=== PATIENT | female | born 1945 | race Caucasian/White ===

== ENCOUNTER 2020-03-27 11:14 | Outpatient (CLI) | payer OTHER, SELFPAY ==
--- NOTE | ~2020-03-27 | XR_ITS ---
EXAMINATION: XR lg joint inject/asp w image DATE: 03/27/2020 12:19 INDICATION: Right hip arthritis. TECHNIQUE: A time-out was performed to verify the patient's name, date of , and procedure to b e performed. The procedure including the risks, benefits, and alternatives was discussed with the pat ient. Risks discussed included bleeding and infection. The patient understood the risks and agreed to proceed. The skin overlying the right hip joint was prepped and draped in usual sterile fashion. A nesthetic was administered with 1% lidocaine subcutaneously. A 22 G needle was advanced under fluoro scopic guidance into the joint. Injection of 1 mL of Omnipaque 240 confirmed intra-articular positio n of the needle. Subsequently, injectate consisting of 2 mL 0.5% bupivacaine and 1 mL 80 mg/mL Depo- Medrol was instilled. The needle was removed and the entry site was cleaned and dressed. There were no immediate complications. Fluoroscopy exposure time was 0.1 minutes. The total number of images wa s 2. FINDINGS: Real-time fluoroscopy demonstrates the needle in the right hip joint. Patient's pain prior to procedure:5/10. Patient's pain following the procedure: 0/10. IMPRESSION: 1. Fluoroscopy guided right hip joint injection of local anesthetic and steroid with decrease in the patient's presenting pain. Reviewed, dictated and finalized at location A. [facility]
== END 2020-03-27 11:15 | disposition home or self-care (01) ==
PROVIDERS: PCP Internal Medicine; Visit Provider Orthopaedic Surgery
DX: M16.11 Unilateral primary osteoarthritis, right hip (principal)
CPT/HCPCS: 20610; 77002; J1040; Q9966

== ENCOUNTER 2021-08-15 12:00 | Outpatient (CLI) | payer OTHER, SELFPAY ==
--- NOTE | 2021-08-15 12:59 | ECG_ITS ---
Measurements Intervals [place] Rate: 80 P: 60 CO: 165 QRS: 31 QRSD: 83 T: 44 QT: 374 QTc: 434 Interpretive Statements SINUS RHYTHM MINOR T-WAVE ABNORMALITY OTHERWISE NORMAL ECG NO PREVIOUS ECG AVAILABLE FOR COMPARISON Electronically Signed On 08-15-2021 15:29:17 CDT by Yvon Mendez M.D.
[2021-08-15 13:30] LABS: Basophils Absolute Auto 0.1 K/mm3 (0.0-0.1); Eosinophils Absolute Auto 0.4 K/mm3 (0-0.3); Hematocrit 38.6 % (37.0-47.0); Hemoglobin 12.5 g/dL (12.0-15.0); Immature Granulocyte Absolute 0.03 K/mm3 (0.00-0.031); Immature Granulocyte Percent A 0.4 % (0-0.5); Lymphocytes Absolute Auto 2.36 K/mm3 (0.9-3.2); Mean Corpuscular HGB Conc 32.4 g/dl (32-36); Mean Corpuscular Hemoglobin 27.4 pg (26-34); Mean Corpuscular Volume 84.6 fl (80-100); Mean Platelet Volume 9.7 fl (7.4-10.4); Monocytes Absolute Auto 0.9 K/mm3 (0.1-0.6); Monocytes Percent Auto 11.2 % (2.6-8.5); Neutrophils Absolute Auto 4.4 K/mm3 (1.3-6.7); Neutrophils Percent Auto 53.4 % (45.5-73.1); Platelet Count Result 418 k/mm3 (150-375); Red Blood Count 4.56 M/mm3 (4.2-5.4); Red Cell Distribution Width 13.3 % (11.5-14.5); White Blood Count 8.2 K/mm3 (4.5-10.0)
[2021-08-15 13:33] LABS: Add Urine Microscopic? YES; Appearance Urine Clear (Clear); Bilirubin Urine Negative (Negative); Blood Urine Negative (Negative); Color Urine Yellow (Yellow); Glucose Urine UA Negative (Negative); Ketones Urine Negative (Negative); Leukocyte Esterase Ur Trace LEU/UL (Negative); Nitrate Urine Negative (Negative); Protein Urine Negative (Negative); RBC Urine 0-2 /hpf (0-2); Specific Grav Ur 1.012 (1.001-1.035); Urobilinogen Urine Negative mg/dL (<2.0); WBC Urine 0-3 /hpf
[2021-08-15 13:39] LABS: Prothrombin Time 12.7 Seconds (11.1-14.7)
[2021-08-15 13:40] LABS: Partial Thromboplastin Time 27.2 SECONDS (22.3-36.8)
[2021-08-15 13:41] LABS: Albumin Level 4.7 g/dL (3.5-5.1); Anion Gap 7 mmol/L (8-16); Blood Urea Nitrogen 14 mg/dL (7-17); Calcium 9.6 mg/dL (8.4-10.2); Carbon Dioxide 32 mmol/L (22-30); Chloride 99 mmol/L (98-107); Estimated Glomerular Filt Rate > 60; Glucose 87 mg/dL (65-110); Potassium 4.1 mmol/L (3.4-5.0); Sodium 138 mmol/L (137-145)
[2021-08-15 13:45] LABS: Urine Cotinine NEGATIVE
[2021-08-15 13:47] LABS: Hemoglobin A1C 5.9 % (<5.7)
== END 2021-08-15 12:01 | disposition home or self-care (01) ==
LOC: ANHSURGERY 12:04
PROVIDERS: PCP Internal Medicine; Visit Provider Orthopaedic Surgery
DX: Z01.812 Encounter for preprocedural laboratory examination (principal); M16.11 Unilateral primary osteoarthritis, right hip
CPT/HCPCS: 80048; 80307; 81001; 82040; 83036; 85025; 85610; 85730; 86850; 86900; 86901; 87081; 93005

== ENCOUNTER 2021-08-27 15:09 | Observation (INO) | payer OTHER, SELFPAY ==
[2021-08-15 12:12] VITALS: BMI 28.2
--- NOTE | 2021-08-15 12:37 | PC.NURSE ---
Report to the Outpatient Waiting Room, entrance under the green pavilion located off [facility], at time _0600 on date . OR Time: . - You and your visitor will be asked a series of questions to screen for COVID 19 for your protection. - A mask is required within the hospital. Preoperative COVID Testing Requirements: No COVID Test needed if: (proof is required; if not received patient will have Rapid Test prior to entry) - Patient has received COVID Vaccine at least 14 days prior to procedure date or - Patient has positive COVID test result within last 90 days of surgery date. COVID Test needed if above criteria is not met If not COVID vaccinated a COVID test must be conducted within 72 hours of surgery and patient is asked to isolate self from time of testing until procedure. You will go to the [facility] for your COVID testing. The [employer] [facility] is located at the corner of [address] [facility]. You will only be called if COVID results are positive and your surgeon may reschedule your elective surgery date. Patients may have clear liquids (water, carbonated beverages, clear teas, apple juice) until 3 hours prior to surgery with a maximum of 20 ounces. - No food from midnight until time of surgery - Infants may have breast milk until 4 hours before surgery, infant formula 6 hours prior to surgery. - Children will be allowed to drink immediately following surgery. If applicable, please bring a bottle or sippy cup to assist with drinking. Juice, water, soda, and popsicles are readily available. For infants on formula, please bring formula the day of surgery. Pacifiers are allowed. Take the following medications with a SIP of water the morning of surgery: _ALPRAZOLAM,BUPROPION,_VENLAFAXINE Medications to discontinue per physician __TORDAOL PER DR TIDWELL, ALL VITAMINS AND SUPPLEMENTS 3 DAYS PRE OP Date to take last dose__08/22/21 Please no make-up, nail tongan, hairspray, perfume, deodorant, or body powder the day of surgery. No jewelry (including any body piercings) or valuables the day of surgery, leave them at home. Please take a shower or bath the night before, or the morning of, surgery with an antibacterial soap. Wear comfortable, loose fitting clothing. Children are encouraged to wear pajamas. - Jewelry must be removed prior to entering the operating room. Rings and piercings that are not removed may be cut off. - The hospital will not accept responsibility for valuables. - Please leave all valuables, including medications, at home the day of surgery. If you are going home after surgery, a licensed delivery motorcycle driver must drive you home. - NO public transportation without another adult. - We recommend that an adult stay with you for 24 hours following discharge. - We also recommend that you do not drive, make important decision, drink alcoholic beverages, or take any drugs that were not prescribed by your health care provider for at least 24 hours after your discharge time. For Pediatric surgeries, we recommend two adults accompany the child home (only one inside the building at this time). One visitor will be allowed to accompany the patient into the hospital. Patients visitor will be instructed to remain with patient at all times or leave the building. We will allow the visitor to come back to the postoperative area when patient is ready. Follow any additional instructions given to you from your surgeon. VERBAL AND WRITTEN instructions given to __PATIENT and asked if any additional questions and then verbalized understanding. Patient advised to call surgeon office or pre surgery nurse liaison [phone] if any additional questions.
[2021-08-15 12:57] VITALS: BP 152/94; PULSE 88; RESP 18; TEMP 36.9; O2SAT 98
[2021-08-26] VITALS (16 sets, daily range): BP systolic 119–156; BP diastolic 55–82; PULSE 82–105; RESP 10–20; TEMP 35.8–36.6; O2SAT 90–100; BMI 28.2
[2021-08-26] MEDS: ACETAMINOPHEN 500 MG TABLET 1000 MG PO (06:16)
[2021-08-26] MEDS: LACTATED RINGERS 1,000 ML 30 ML IV CONT ×2 (06:20→11:00)
[2021-08-26] MEDS: TRANEXAMIC ACID 1,000MG/ISO100 1,000 MG/100 ML BAG 200 MG IVPB (06:58)
--- NOTE | 2021-08-26 07:01 | WPDANESEPPF ---
Anes - Initial Pre Proc Eval Procedure: Operation Date: 08/26/21 07:30 Proposed Procedures p Right Total Hip Arthroplasty - Home Contreras MD Date/Time: 08/26/21 07:01 Surgeon: Home Contreras MD Pre Op Diagnosis: right hip DJD Patient Data Age: 76 Gender: F Height: 1.59 m Weight: 68 kg Last Vital Signs Temp 36.6 C 08/26/21 06:05 Pulse 103 H 08/26/21 06:05 Resp 16 08/26/21 06:05 BP 129/76 08/26/21 06:05 Pulse Ox 96 08/26/21 06:05 Allergies Allergy/AdvReac Type Severity Reaction Status Date / Time No Known Allergies Allergy Verified 08/26/21 06:00 Home Medications Medication Instructions Recorded Confirmed Type alprazolam 0.5 mg tablet 0.5 mg PO BID 03/15/20 08/26/21 History bupropion HCl 150 mg 24 hr tablet, 150 mg PO QAM 03/15/20 08/26/21 History extended release cimetidine 800 mg tablet 800 mg PO BID 03/15/20 08/26/21 History omeprazole 40 mg capsule,delayed 40 mg PO DAILY 03/15/20 08/26/21 History release temazepam 15 mg capsule 30 mg PO HS 03/15/20 08/26/21 History venlafaxine 37.5 mg tablet 37.5 mg PO QAM 03/15/20 08/26/21 History atorvastatin 20 mg PO DAILY 08/15/21 08/26/21 History biotin 1 tablet PO DAILY 08/15/21 08/26/21 History cholecalciferol (vitamin D3) 50 mcg PO DAILY 08/15/21 08/26/21 History cyanocobalamin (vitamin B-12) 1,000 mcg PO DAILY 08/15/21 08/15/21 History fexofenadine [Faby Allergy] 180 mg PO DAILY 08/15/21 08/26/21 History hydrochlorothiazide 25 mg PO DAILY 08/15/21 08/26/21 History ipratropium bromide 2 spray INTRANASAL DAILY 08/15/21 08/26/21 History ketorolac 10 mg PO Q6H PRN 08/15/21 08/26/21 History sulfamethoxazole 800 1 tablet PO Q12H #20 tablet 08/15/21 Rx mg-trimethoprim 160 mg tablet Patient hx anesthesia problems: post op nausea/vomiting Family hx anesthesia problems: none Results Review: All pre-operative results and documents have been reviewed as part of the pre-operative evaluation. [facility] Past Medical History Medical History Anxiety Arthritis Depression GERD (gastroesophageal reflux disease) Hyperlipidemia Hypertension Right hip pain Family History Family History Other Family history of mental disorder Social History Social History Additional smoking assessment comments: DENIES ANY FORM OF TOBACCO USE Alcohol intake: current Substance use: never Living arrangements: with family Gender identity (if verbalized by the patient): Female Spiritual care concerns: No Anes - Eval Final PreProcedure Day of Procedure 08/26/21 07:01 Patient weight: overweight Heart: regular rate and rhythm Lungs: clear to auscultation Airway: Mallampati scale class II Neurological: alert and oriented Last oral intake: >/= 8 hours ASA classification: III Emergent: no Anesthetic plan: proceed Anesthesia type and monitoring: general ETT and standard monitoring Results Review: All pre-operative results and documents have been reviewed as part of the pre-operative evaluation. Informed Consent: The patient's anesthetic plan and its attendant risks and benefits were discussed with the patient/family/POA. Questions were solicited and answers provided to the satisfaction of the patient/family/POA.
--- NOTE | 2021-08-26 07:13 | WPDHPUPDATE1 ---
History and Physical Update Update Date/Time: 08/26/21 07:13 History and Physical has been reviewed, including an updated exam of the patient. There are NO changes in the patient's condition. Risks, benefits, and alternatives have been discussed and questions answered. Patient agrees to proceed with procedure.
[2021-08-26] MEDS: ceFAZolin 2 GM/D5W 50 ML 2 GM/50 ML BAG IVPB ×3 (07:26→23:16)
[2021-08-26] MEDS: TRANEXAMIC ACID 1,000 MG/10 ML AMPUL 1000 MG IV PUSH (10:12)
--- NOTE | 2021-08-26 10:57 | W.PM.PROC2 ---
Procedure Note - Detailed Date of Procedure 08/26/21 Pre-op Diagnosis right hip DJD Post-op Diagnosis Same Procedure Performed R MEDARDO Surgeon Home Contreras MD Anesthesia General Description of Procedure THE PATIENT WAS TAKEN TO THE OPERATING ROOM IN STABLE CONDITION AND WAS PLACED IN THE LATERAL DECUBITUS AND THE RIGHT LOWER EXTREMITY WAS PREPPED AND DRAPED IN THE STERILE FASHION. INCISION WAS MADE IN THE POSTERIOR LATERAL SIDE OF THE HIP, DOWN TO THE FASCIA LAYER. THE FASCIA WAS INCISED. THE HIP WAS EXPOSED. THE SHORT EXTERNAL ROTATORS WERE EXPOSED. THE SCIATIC NERVE WAS IDENTIFIED. THERE WAS A HIGH BIFURCATION OF THE NERVE. INCISION WAS MADE THROUGH THE SORT EXTERNAL ROTATORS AND THE CAPSULE OF THE HIP JOINT. THE HIP WAS DISLOCATED. AN OSTEOTOMY WAS MADE TO THE FEMORAL NECK ABOUT 1 CM PROXIMAL TO THE LESSER TROCHANTER. THE ACETABULUM WAS EXPOSED. THERE WAS SEVERE DJD SEEN. BEGINNING WITH A 44 REAMER THE ACETABULUM WAS REAMED TO 49 MM. A 49 MM TRIAL WAS PLACED IN 35 DEG OF ABDUCTION AND ANTEVERSION WAS IN ALIGNMENT WITH THE TRANS ACETABULAR LIGAMENT. THE FIT WAS EXCELLENT. THE TRIAL WAS REMOVED. A 50 MM BIOMET G7 COMPONENT WAS THEN TAPPED IN TO PLACE IN 35 DEG OF ABDUCTION AND ANTEVERSION IN ALIGNMENT WITH THE TRANSVERSE ACETABULAR LIGAMENT. THE FIT WAS EXCELLENT. ONE SCREW WAS PLACED WITH AN EXCELLENT BITE. THE ACETABULAR LINER WAS PLACED AND CHECKED FOR STABILITY. NEXT THE FEMUR WAS PREPARED WITH INITIAL CANAL FINDER THEN SEQUENTIAL REAMING AND BROACHING WITH A ECCO BIMETRIC SYSTEM, UNTIL A 12 BROACH FIT WELL IN 15 OF ANTEVERSION. A +0 STANDARD OFFSET NECK WITH 36 MM HEAD TRIAL WAS PLACED. THE SHUCK TEST WAS EXCELLENT AND THE STABILITY IN FLEXION AND ROTATION WAS EXCELLENT. LEG LENGTHS WERE GROSSLY EQUAL. TRIALS WERE REMOVED. A ECCO BIMETRIC 12 STEM WAS PLACED WITH A STANDARD OFFSET NECK THE FIT WAS EXCELLENT IN 15 DEG OF ANTEVERSION. A +0 CERAMIC 36 MM FEMORAL HEAD WAS PLACED. THE HIP WAS TRIALED AND THE STABILITY WAS EXCELLENT WERE THE LEG LENGTHS AND THE SHUCK TEST. THE WOUND WAS IRRIGATED WITH STERILE BETADINE AND WATER FOR 3 MIN. THEN WASHED AGAIN. THE CAPSULE AND THE EXTERNAL ROTATORS WERE APPROXIMATED WITH NUMBER 1 VICRYL. THE FASCIA WITH No 2 QUIL AND THE SUB CUTANEOUS LAYER WITH 2-0 ABSORBABLE SUTURE WITH A RUNNING 3-0 SUBCUTICULAR LAYER WELL. DERMABOND WAS PLACED AND STERILE DRESSING WAS APPLIED. PATIENT WAS PLACED BACK ON TO THE SUPINE POSITION AND WAS EXTUBATED Estimated Blood Loss 800 Complications No immediate complications Condition Stable Disposition PACU
[2021-08-26] MEDS: fentaNYL CITRATE INJ (*CRX) 100 MCG/2 ML VIAL 25 MCG IV PUSH ×3 (11:35→11:48)
--- NOTE | 2021-08-26 12:20 | ADMGEN ---
This patient, Melisa Blue, was admitted to Medical Room 245-. Patient/family oriented to hospital policies and general routines including ID bracelet, bed and alarms, visiting hours, pain management, procedures, bathroom and other care routines, personal items, smoking policy, room service/diet, and visiting hours. Information on how to activate the Rapid Response Team has been discussed. Patient/Family are encouraged to report perceived risks to care and to ask questions if they do not understand what they are told or what they should do.
[2021-08-26] MEDS: KETOROLAC 15 MG/ML VIAL (*BKC) IV PUSH ×3 (12:38→23:18)
[2021-08-26] MEDS: DEXTROSE 5%/0.45% SOD CHL 1,000 ML 80 ML IV CONT (12:38)
--- NOTE | 2021-08-26 14:29 | PCPTNOTE ---
Attempted physical therapy evaluation, per RN patient remains very drowsy from surgery and to check back later. Will follow.
[2021-08-26] MEDS: ONDANSETRON INJ 4 MG/2 ML VIAL IV PUSH (15:37)
[2021-08-26] MEDS: HYDROcodone/acetaminophen (*CRX) 7.5-325 MG TABLET 1 TAB PO ×2 (15:37→21:53)
[2021-08-26] MEDS: SENNA/DOCUSATE SODIUM TABLET 2 TAB PO (16:18)
[2021-08-26 21:04] LABS: Hematocrit 24.8 % (37.0-47.0); Hemoglobin 8.2 g/dL (12.0-15.0)
[2021-08-26] MEDS: ALPRAZolam (*CRX) 0.5 MG TABLET 1 MG PO (21:52)
[2021-08-26] MEDS: TEMAZEPAM (*CRX) 15 MG CAPSULE 30 MG PO (21:52)
[2021-08-26] MEDS: FAMOTIDINE 20 MG TABLET PO (21:53)
[2021-08-27] VITALS (7 sets, daily range): BP systolic 123–136; BP diastolic 57–71; PULSE 89–110; RESP 12–20; TEMP 36–36.9; O2SAT 95–100
--- NOTE | ~2021-08-27 | XR_ITS ---
EXAMINATION: XR hip RT 1V DATE: 08/26/2021 11:11 INDICATION: Total right hip arthroplasty. Postop. TECHNIQUE: A single view of right hip was obtained. COMPARISON: Pelvis and right hip radiographs 08/15/2021 FINDINGS: There is a total right hip arthroplasty in near-anatomic alignment. No fracture. There is g as in the soft tissues, consistent with recent surgery. IMPRESSION: 1. Total right hip arthroplasty in near-anatomic alignment. Reviewed, dictated and finalized at location B.
[2021-08-27] MEDS: DEXTROSE 5%/0.45% SOD CHL 1,000 ML 80 ML IV CONT (01:41)
[2021-08-27] MEDS: KETOROLAC 15 MG/ML VIAL (*BKC) IV PUSH ×2 (05:38→11:14)
[2021-08-27] MEDS: ceFAZolin 2 GM/D5W 50 ML 2 GM/50 ML BAG IVPB (05:38)
[2021-08-27 06:00] LABS: Basophils Percent Auto 0.1 % (0.2-1.2); Eosinophils Percent Auto 0.1 % (0-4.4); Hematocrit 22.4 % (37.0-47.0); Hemoglobin 7.3 g/dL (12.0-15.0); Immature Granulocyte Absolute 0.06 K/mm3 (0.00-0.031); Immature Granulocyte Percent A 0.4 % (0-0.5); Lymphocytes Absolute Auto 2.06 K/mm3 (0.9-3.2); Lymphocytes Percent Auto 14.1 % (18.3-44.2); Mean Corpuscular HGB Conc 32.6 g/dl (32-36); Mean Corpuscular Hemoglobin 27.4 pg (26-34); Mean Corpuscular Volume 84.2 fl (80-100); Mean Platelet Volume 10.4 fl (7.4-10.4); Monocytes Absolute Auto 1.8 K/mm3 (0.1-0.6); Monocytes Percent Auto 12.4 % (2.6-8.5); Neutrophils Absolute Auto 10.6 K/mm3 (1.3-6.7); Neutrophils Percent Auto 72.9 % (45.5-73.1); Platelet Count Result 321 k/mm3 (150-375); Red Blood Count 2.66 M/mm3 (4.2-5.4); Red Cell Distribution Width 13.5 % (11.5-14.5); White Blood Count 14.6 K/mm3 (4.5-10.0)
[2021-08-27 06:10] LABS: Anion Gap 3 mmol/L (8-16); Blood Urea Nitrogen 13 mg/dL (7-17); Calcium 7.8 mg/dL (8.4-10.2); Carbon Dioxide 29 mmol/L (22-30); Chloride 95 mmol/L (98-107); Estimated CRCL calculation 48 ml/min; Estimated Glomerular Filt Rate > 60; Glucose 125 mg/dL (65-110); Potassium 3.7 mmol/L (3.4-5.0); Sodium 127 mmol/L (137-145)
[2021-08-27] MEDS: polyethylene glycoL 3350 17 GM POWD.PACK PO (08:06)
[2021-08-27] MEDS: ASPIRIN 325 MG ENTERIC TABLET 650 MG PO (08:07)
[2021-08-27] MEDS: PANTOPRAZOLE 40 MG TABLET PO ×2 (08:07→16:15)
[2021-08-27] MEDS: ONDANSETRON INJ 4 MG/2 ML VIAL IV PUSH (08:07)
[2021-08-27] MEDS: SENNA/DOCUSATE SODIUM TABLET 2 TAB PO ×2 (08:07→16:15)
[2021-08-27] MEDS: ACETAMINOPHEN 325 MG TABLET 650 MG PO (08:07)
[2021-08-27] MEDS: CYANOCOBALAMIN 1,000 MCG TABLET 1000 MCG PO (08:08)
[2021-08-27] MEDS: ATORVASTATIN 20 MG TABLET PO (08:08)
[2021-08-27] MEDS: FAMOTIDINE 20 MG TABLET PO ×2 (08:08→21:12)
[2021-08-27] MEDS: CHOLECALCIFEROL 1,000 UNITS TABLET 2000 UNITS PO (08:08)
[2021-08-27] MEDS: ALPRAZolam (*CRX) 0.5 MG TABLET PO (08:08)
[2021-08-27] MEDS: hydroCHLOROthiazide 25 MG TABLET PO (08:08)
[2021-08-27] MEDS: VENLAFAXINE HCL 37.5 MG TABLET PO (08:08)
[2021-08-27] MEDS: buPROPion HCL XL (24 HR) 150 MG TABCR PO (08:08)
--- NOTE | 2021-08-27 11:01 | PCOTNOTE ---
Patient reports being very tired, feels like she just doesn't care. Patient not motivated to participate in OT at this time. Patient's present. Patient requested therapist attempt again later. Patient's RN reports patient to receive blood soon. Will return to see patient after blood transfusion complete.
[2021-08-27] MEDS: SODIUM CHLORIDE 0.9% IV 250 ML 30 ML IV CONT (11:04)
--- NOTE | 2021-08-27 11:57 | PCCCNOTE ---
On 08/27/21, the student, [Alicia Maradiaga ], provided care and completed [facility] documentation on this patient. I have reviewed the student's documentation and agree with the findings.
--- NOTE | 2021-08-27 12:34 | P.PNAN_ITS ---
Anes - Prog Note Post-Op Date/Time: 08/27/21 12:34 Cardiovascular status: normal Respiratory status: normal Airway patency: baseline Mental status: baseline Post-Op hydration status: normal Vital Signs: Last Vital Signs Temp 97.8 F 08/27/21 11:27 Pulse 89 08/27/21 11:27 Resp 12 08/27/21 11:27 BP 123/61 08/27/21 11:27 Pulse Ox 99 08/27/21 11:27 Pain Score (VAS): 05/05 I/O: Intake & Output 08/26/21 08/27/21 08/27/21 23:59 07:59 15:59 Intake Total 325 1730 175 Output Total 0 Balance 325 1730 175 Laboratory Tests 08/27/21 05:17 08/27/21 05:17 08/26/21 08/27/21 08/27/21 20:56 05:17 05:17 WBC 14.6 H RBC 2.66 L Hgb 8.2 L D 7.3 L Hct 24.8 L 22.4 L MCV 84.2 MCH 27.4 MCHC 32.6 RDW 13.5 Plt Count 321 MPV 10.4 Immature Gran % (Auto) 0.4 Neut % (Auto) 72.9 Lymph % (Auto) 14.1 L [place] % (Auto) 12.4 H Eos % (Auto) 0.1 Baso % (Auto) 0.1 L Lymph # (Auto) 2.06 [place] # (Auto) 1.8 H Eos # (Auto) 0.0 Baso # (Auto) 0.0 Abs Immat Gran (auto) 0.06 H Absolute Neuts (auto) 10.6 H Absolute Nucleated RBC 0.0 Nucleated RBC % 0.0 Sodium 127 L Potassium 3.7 Chloride 95 L Carbon Dioxide 29 Anion Gap 3 L BUN 13 Creatinine 0.80 Estim Creat Clear Calc 48 Estimated GFR > 60 Glucose 125 H Calcium 7.8 L Blood Type Antibody Screen Crossmatch 08/27/21 08:26 WBC RBC Hgb Hct MCV MCH MCHC RDW Plt Count MPV Immature Gran % (Auto) Neut % (Auto) Lymph % (Auto) [place] % (Auto) Eos % (Auto) Baso % (Auto) Lymph # (Auto) [place] # (Auto) Eos # (Auto) Baso # (Auto) Abs Immat Gran (auto) Absolute Neuts (auto) Absolute Nucleated RBC Nucleated RBC % Sodium Potassium Chloride Carbon Dioxide Anion Gap BUN Creatinine Estim Creat Clear Calc Estimated GFR Glucose Calcium Blood Type A Positive Antibody Screen Negative Crossmatch See Detail Post-procedural complaints: none Patient Feedback: Patient satisfied with anesthetic care.
--- NOTE | 2021-08-27 13:41 | PCOTNOTE ---
Patient not seen this date due to patient receiving blood transfusion. Will continue OT plan of care tomorrow.
--- NOTE | 2021-08-27 14:44 | PM.PNORT ---
Progress Note: A&P Additional Plan POD 1 DOING WELL. WILL OBSERVE HER HGB AND Na+ FOR NOW. SHE WILL CONTINUE PT. POSSIBLE DC TOMORROW. Subjective Subjective Date/Time Seen: 08/27/21 14:44 POD 1 DOING WELL. GETTING HER PRBCs AND FEELING MUCH BETTER. NO CP OR SOB. NO CALF PAIN Exam Extrem: Other: VSS AFEBRILE DRESSING DRY NV INTACT NEG HOMANS SIGN Objective Data Vital Signs Vital Signs: Vital Signs - 24 hr 08/26/21 18:12 08/26/21 20:00 08/26/21 20:58 Temperature 36.3 C L Pulse Rate 105 H 103 H 103 H Respiratory Rate 20 20 Blood Pressure 132/61 Pulse Oximetry 99 97 97 08/26/21 23:08 08/27/21 00:55 08/27/21 05:24 Temperature 36.1 C L 36.1 C L Pulse Rate 102 H 110 H Respiratory Rate 20 20 Blood Pressure 128/61 126/58 L Pulse Oximetry 97 95 96 08/27/21 09:55 08/27/21 11:12 08/27/21 11:27 Temperature 36.0 C L 36.2 C L 36.6 C Pulse Rate 97 92 89 Respiratory Rate 16 14 12 Blood Pressure 127/59 L 127/57 L 123/61 Pulse Oximetry 97 100 99 08/27/21 13:55 Temperature 36.7 C Pulse Rate 93 Respiratory Rate 16 Blood Pressure 129/59 L Pulse Oximetry 98 Intake/Output Intake/Output: Intake & Output 08/24/21 08/25/21 08/26/21 08/27/21 23:59 23:59 23:59 23:59 Intake Total 1825 2250 Output Total 0 Balance 1825 2250 Meds/Results Medications: Active Medications Generic Name Dose Route Start Last Admin Trade Name Freq PRN Reason Stop Dose Admin Acetaminophen 650 mg 08/26/21 12:10 08/27/21 08:07 Acetaminophen 325 Mg Tablet PO 650 mg Q6H PRN Administration Mild Pain (1-3) or Fever Hydrocodone Bitart/Acetaminophen 1 tab 08/26/21 12:10 08/26/21 21:53 Hydrocodone/Acetaminophen (*Crx) 7.5-325 Mg Tablet PO 1 tab Q3H PRN Administration Pain Rated 4-6 Alprazolam 0.5 mg 08/27/21 09:00 08/27/21 08:08 Alprazolam (*Crx) 0.5 Mg Tablet PO 0.5 mg DAILY ELTON Administration Alprazolam 1 mg 08/26/21 21:00 08/26/21 21:52 Alprazolam (*Crx) 0.5 Mg Tablet PO 1 mg HS ELTON Administration Aspirin 650 mg 08/27/21 09:00 08/27/21 08:07 Aspirin 325 Mg Enteric Tablet PO 650 mg DAILY ELTON Administration Atorvastatin Calcium 20 mg 08/27/21 09:00 08/27/21 08:08 Atorvastatin 20 Mg Tablet PO 20 mg DAILY ELTON Administration Bupropion HCl 150 mg 08/27/21 09:00 08/27/21 08:08 Bupropion Hcl Xl (24 Hr) 150 Mg Tabcr PO 150 mg QAM ELTON Administration Cyanocobalamin 1,000 mcg 08/27/21 09:00 08/27/21 08:08 Cyanocobalamin 1,000 Mcg Tablet PO 1,000 mcg DAILY ELTON Administration Diazepam 5 mg 08/26/21 12:10 Diazepam (*Crx) 5 Mg Tablet PO Q6H PRN Anxiety/Muscle Spasm Famotidine 20 mg 08/26/21 21:00 08/27/21 08:08 Famotidine 20 Mg Tablet PO 20 mg Q12HR ELTON Administration Hydrochlorothiazide 25 mg 08/27/21 09:00 08/27/21 08:08 Hydrochlorothiazide 25 Mg Tablet PO 25 mg DAILY ELTON Administration Hydroxyzine HCl 50 mg 08/26/21 12:10 Hydroxyzine Hcl 25 Mg Tablet PO Q4H PRN Itching Dextrose/Sodium Chloride 1,000 mls @ 80 mls/hr 08/26/21 12:10 08/27/21 11:17 Dextrose 5% Sodium Chloride 0.45% IV CONT 0 mls/hr .[id number] ELTON Infusion Sodium Chloride 250 mls @ 30 mls/hr 08/27/21 08:00 08/27/21 11:04 Normal Saline Iv IV CONT 08/27/21 16:19 30 mls/hr .[id number] STA Administration Morphine Sulfate 3 mg 08/26/21 12:10 Morphine Sulfate (*Crx) 4 Mg/Ml Inj IV PUSH Q3H PRN Pain Rated 7-10 Naloxone HCl 0.1 mg 08/26/21 12:10 Naloxone Hcl 0.4 Mg/Ml Vial IV PUSH Q2M PRN Opiate Reversal Ondansetron HCl 4 mg 08/26/21 12:10 08/27/21 08:07 Ondansetron Inj 4 Mg/2 Ml Vial IV PUSH 4 mg Q4H PRN Administration Nausea And Vomiting Pantoprazole Sodium 40 mg 08/27/21 09:00 08/27/21 08:07 Pantoprazole 40 Mg Tablet PO 40 mg BID ELTON Administration Polyethylene Glycol 17 gm 08/27/21 09:00 08/27/21 08:06 Polyethylene Glycol 33
[2021-08-27 15:57] LABS: Hematocrit 26.4 % (37.0-47.0); Hemoglobin 8.7 g/dL (12.0-15.0)
[2021-08-27] MEDS: HYDROcodone/acetaminophen (*CRX) 7.5-325 MG TABLET 1 TAB PO (17:43)
[2021-08-27] MEDS: ALPRAZolam (*CRX) 0.5 MG TABLET 1 MG PO (21:13)
[2021-08-27] MEDS: TEMAZEPAM (*CRX) 15 MG CAPSULE 30 MG PO (21:13)
[2021-08-28 02:00] VITALS: BP 133/63; PULSE 110; RESP 18; TEMP 36.7; O2SAT 95
[2021-08-28 06:00] VITALS: BP 128/58; PULSE 113; RESP 18; TEMP 37.1; O2SAT 97
[2021-08-28] MEDS: HYDROcodone/acetaminophen (*CRX) 7.5-325 MG TABLET 1 TAB PO ×2 (06:46→21:25)
[2021-08-28] MEDS: PANTOPRAZOLE 40 MG TABLET PO ×2 (08:12→17:35)
[2021-08-28] MEDS: ATORVASTATIN 20 MG TABLET PO (08:12)
[2021-08-28] MEDS: buPROPion HCL XL (24 HR) 150 MG TABCR PO (08:12)
[2021-08-28] MEDS: FAMOTIDINE 20 MG TABLET PO ×2 (08:12→21:24)
[2021-08-28] MEDS: CYANOCOBALAMIN 1,000 MCG TABLET 1000 MCG PO (08:12)
[2021-08-28] MEDS: ALPRAZolam (*CRX) 0.5 MG TABLET PO (08:12)
[2021-08-28] MEDS: hydroCHLOROthiazide 25 MG TABLET PO (08:12)
[2021-08-28] MEDS: VENLAFAXINE HCL 37.5 MG TABLET PO (08:13)
[2021-08-28] MEDS: CHOLECALCIFEROL 1,000 UNITS TABLET 2000 UNITS PO (08:13)
[2021-08-28] MEDS: SENNA/DOCUSATE SODIUM TABLET 2 TAB PO ×2 (08:13→17:35)
[2021-08-28] MEDS: polyethylene glycoL 3350 17 GM POWD.PACK PO (08:17)
--- NOTE | 2021-08-28 09:13 | PM.PNORT ---
Progress Note: A&P Assessment and Plan (1) S/P total hip arthroplasty: Qualifiers: Laterality: right Qualified Code(s): Z96.641 - Presence of right artificial hip joint Code(s): Z96.649 - Presence of unspecified artificial hip joint Status: Acute Assessment and Plan: POD #2 : R MEDARDO Continue PT/OT. WBAT. Walker. HIGH FALL RISK. Continue pain control. Ice hip. Protect skin. DVT prophylaxis with Aspirin. SCDs. Incentive Spirometry Use reviewed. Monitor Dressing. Change prior to discharge. Bowel Regimen. Dispo: Home pending progress with PT/OT and stable HgB/NA (2) Hyponatremia: Code(s): E87.1 - Hypo-osmolality and hyponatremia Status: Acute Assessment and Plan: NA 127 yesterday. BMP ordered. Will follow. (3) Postoperative anemia: Code(s): D64.9 - Anemia, unspecified Status: Acute Assessment and Plan: HgB 8.7 yesterday s/p PRBCs. HgB 8.7 after transfusion yesterday. CBC ordered for today. If stable, probable discharge. Time Spent With Patient Time with patient: less than 15 minutes Subjective Subjective Date/Time Seen: 08/28/21 09:13 Post Op day: 2 Interval history: POD #2: Right MEDARDO Patient doing well, feeling better . Working well with PT/OT. No new concerns. Hopeful for discharge home today. Review of Systems Review of Systems: All systems reviewed & are unremarkable except as noted in HPI and below Constitutional: Constitutional: Denies chills, Denies fever(s), Denies headache(s), Denies lethargy and Reports weakness ENT: Denies headache(s) Cardiovascular: Cardiovascular: Denies chest pain, Denies diaphoresis, Denies lightheadedness, Denies palpitations, Denies dyspnea and Denies dyspnea on exertion Respiratory: Respiratory: Denies cough, Denies dyspnea and Denies dyspnea on exertion Gastrointestinal: Gastrointestinal: Denies constipation, Denies diarrhea, Denies nausea and Denies vomiting Genitourinary: Genitourinary: Reports urinary frequency, Denies dysuria and Denies urinary hesitancy Musculoskeletal: Musculoskeletal: Reports joint swelling (Right Hip ) and Reports limited range of motion (Right Hip due to recent surgery ) Neurologic: Denies headache(s) and Reports weakness Endocrine: Endocrine: Denies palpitations Exam Const: General: comfortable and no acute distress Resp: Effort & Inspection: normal respiratory effort Cardio: Rate: regular rate Rhythm: regular rhythm GI: Inspection: non-distended Skin: General skin exam: normal color Other: Incision right hip c/d/i. Surrounding tissue without redness/warmth. Mild swelling consistent with recent surgery. No drainage. Neuro: Cognition (Neuro): normal cognition Speech: normal speech Other: Strength RLE decreased due to recent surgery. +ankle dorsiflexion/plantarflexion. NV intact. Moves toes. Sensaiton intact to light touch. Extrem: Right lower extremity: normal to inspection, normal capillary refill and hip/thigh Details: tenderness Location: of the hip (Thigh soft ) Location: laterally and anteriorly, swelling Location: at the hip, abnormal ROM (limited consistent with recent surgery ) and other (Incision c/d/i. ); no deformity and no unusual warmth Objective Data Vital Signs Vital Signs: Vital Signs - 24 hr 08/27/21 09:55 08/27/21 11:12 08/27/21 11:27 Temperature 36.0 C L 36.2 C L 36.6 C Pulse Rate 97 92 89 Respiratory Rate 16 14 12 Blood Pressure 127/59 L 127/57 L 123/61 Pulse Oximetry 97 100 99 08/27/21 13:55 08/27/21 22:00 08/28/21 02:00 Temperature 36.7 C 36.9 C 36.7 C Pulse Rate 93 102 H 110 H Respiratory Rate 16 18 18 Blood Pressure 129/59 L 136/71 133/63 Pulse Oximetry 98 96 95 08/28/21 06:00 Temperature 37.1 C Pulse Rate 113 H Respiratory Rate 18 Blood Pressure 128/58 L Pulse Oximetry 97 Intake/Output Intake/Output: Intake & Output 08/25/21 08/26/21 08/27/21 08/28/21 23:59 23:59 23:59 23:59 Intake Total 1825 3
[2021-08-28 09:40] LABS: Basophils Percent Auto 0.1 % (0.2-1.2); Eosinophils Percent Auto 0.3 % (0-4.4); Hematocrit 27.2 % (37.0-47.0); Immature Granulocyte Absolute 0.13 K/mm3 (0.00-0.031); Lymphocytes Absolute Auto 2.29 K/mm3 (0.9-3.2); Lymphocytes Percent Auto 16.8 % (18.3-44.2); Mean Corpuscular HGB Conc 33.1 g/dl (32-36); Mean Corpuscular Volume 84.7 fl (80-100); Mean Platelet Volume 9.9 fl (7.4-10.4); Monocytes Absolute Auto 1.8 K/mm3 (0.1-0.6); Neutrophils Absolute Auto 9.4 K/mm3 (1.3-6.7); Neutrophils Percent Auto 68.8 % (45.5-73.1); Platelet Count Result 336 k/mm3 (150-375); Red Blood Count 3.21 M/mm3 (4.2-5.4); Red Cell Distribution Width 13.4 % (11.5-14.5); White Blood Count 13.7 K/mm3 (4.5-10.0)
[2021-08-28] MEDS: ASPIRIN 325 MG ENTERIC TABLET 650 MG PO (09:47)
[2021-08-28 09:50] LABS: Anion Gap 5 mmol/L (8-16); Blood Urea Nitrogen 11 mg/dL (7-17); Calcium 8.5 mg/dL (8.4-10.2); Carbon Dioxide 28 mmol/L (22-30); Chloride 92 mmol/L (98-107); Estimated CRCL calculation 48 ml/min; Estimated Glomerular Filt Rate > 60; Glucose 135 mg/dL (65-110); Potassium 3.9 mmol/L (3.4-5.0); Sodium 125 mmol/L (137-145)
[2021-08-28 10:00] VITALS: BP 128/58; PULSE 104; RESP 18; TEMP 36.6; O2SAT 96
--- NOTE | 2021-08-28 13:00 | WPDCN ---
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 At this time we will hold her hydrochlorothiazide. She does not need IV fluids and in fact I think I will restrict her fluid intake to 1500 cc. With her increasing urine output in the last 12 to 18 hours, I think her body is probably resetting and I expect her sodium will start to creep back up. For completeness sake, will check TSH, urine and serum osmolalities, FENa and FEUrea. (2) Postoperative anemia due to acute blood loss: Code(s): D62 - Acute posthemorrhagic anemia Status: Acute Assessment and Plan: Status post blood transfusion postop day 1. Repeat hemoglobin and hematocrit in a.m.. (3) Hypertension: Code(s): I10 - Essential (primary) hypertension Status: Inactive Assessment and Plan: Blood pressures were reviewed and they are stable. (4) Depression with anxiety: Code(s): F41.8 - Other specified anxiety disorders Status: Acute Assessment and Plan: Continue alprazolam, bupropion, and venlafaxine. If sodium continues to drop, would consider holding these medications. (5) Gastroesophageal reflux disease: Code(s): K21.9 - Gastro-esophageal reflux disease without esophagitis Status: Inactive Assessment and Plan: No acute issues. Continue omeprazole. Additional Plan Thank you for allowing us to participate in this patient's care. Please do not hesitate to contact us with any questions. Supervising physician for this medical consultation is Dr. Emerson Parker. HPI Data of Consult Date/Time: 08/28/21 13:00 Requesting Physician: Home Contreras MD Reason for consultation: Hyponatremia. Primary Care Provider: Hilary BalMD Consult Narrative Narrative: This is a pleasant year female postoperative day 2 status post right total hip arthroplasty per Dr. Contreras for degenerative joint disease. Her medical history is also significant for hypertension, hyperlipidemia, anxiety, depression, and GERD. Her surgery was performed under general anesthesia with no immediate complications documented however she did have 800 mL blood loss for which she was given 1 unit of packed red blood cells yesterday. She has been working with PT however she has just not been feeling well the past couple of days with poor appetite and lightheadedness/dizziness upon standing. She also reports having quite a bit of pain in the hip when up and about to the bathroom. Postoperatively she has had moderate hyponatremia with a sodium of 125 this morning and hospitalist service was consulted in this setting.While she has not been eating much she reports to me that she has been drinking 4 to 5, 500 mL pitchers of water the past 2 days. She received 1 L of D5 half normal saline after her surgery and it looks like she got 1 L of LR with her surgery. Aside from a unit of blood, it does not look like she has gotten any other fluids aside from 1 unit of packed red blood cells. She is on several medications that could cause hyponatremia including bupropion, hydrochlorothiazide, and venlafaxine and it looks like she has been getting them during this stay. At the time my evaluation she does not have any complaints but she does mention that she has been urinating a lot over the past 12 to 18 hours, and in fact she even got up in the melena night urinate which is unusual for her. She denies headache, vomiting, confusion, muscle cramps, and weakness. Review of Systems Review of Systems: Twelve systems were reviewed and are negative except for
[2021-08-28 15:46] LABS: Thyroid Stimulating Hormone Reflex 0.471 uIU/mL (0.465-4.68)
[2021-08-28 16:39] LABS: Anion Gap 6 mmol/L (8-16); Blood Urea Nitrogen 10 mg/dL (7-17); Calcium 8.3 mg/dL (8.4-10.2); Carbon Dioxide 28 mmol/L (22-30); Chloride 94 mmol/L (98-107); Estimated CRCL calculation 55 ml/min; Estimated Glomerular Filt Rate > 60; Glucose 128 mg/dL (65-110); Potassium 3.7 mmol/L (3.4-5.0); Sodium 128 mmol/L (137-145)
[2021-08-28 18:00] VITALS: BP 126/58; PULSE 110; RESP 18; TEMP 36.9; O2SAT 97
[2021-08-28 19:44] LABS: Urea Random Urine 185 MG/DL
[2021-08-28 19:45] LABS: Sodium Urine Random 21 meq/L
[2021-08-28 20:07] VITALS: O2SAT 98
[2021-08-28 20:53] VITALS: BP 135/70; PULSE 114; RESP 18; TEMP 36.3; O2SAT 98
[2021-08-28] MEDS: ALPRAZolam (*CRX) 0.5 MG TABLET 1 MG PO (21:24)
[2021-08-29] VITALS (7 sets, daily range): BP systolic 120–133; BP diastolic 56–66; PULSE 88–108; RESP 18; TEMP 36–37.1; O2SAT 97–98
[2021-08-29 05:44] LABS: Hematocrit 25.3 % (37.0-47.0); Hemoglobin 8.2 g/dL (12.0-15.0)
[2021-08-29 05:55] LABS: Anion Gap 4 mmol/L (8-16); Blood Urea Nitrogen 9 mg/dL (7-17); Calcium 8.1 mg/dL (8.4-10.2); Carbon Dioxide 31 mmol/L (22-30); Chloride 96 mmol/L (98-107); Estimated CRCL calculation 55 ml/min; Estimated Glomerular Filt Rate > 60; Glucose 105 mg/dL (65-110); Potassium 3.2 mmol/L (3.4-5.0); Sodium 131 mmol/L (137-145)
[2021-08-29] MEDS: HYDROcodone/acetaminophen (*CRX) 7.5-325 MG TABLET 1 TAB PO (06:05)
[2021-08-29] MEDS: polyethylene glycoL 3350 17 GM POWD.PACK PO (08:05)
[2021-08-29] MEDS: POTASSIUM CHLORIDE 20 MEQ TABLET 40 MEQ PO (08:05)
[2021-08-29] MEDS: CYANOCOBALAMIN 1,000 MCG TABLET 1000 MCG PO (08:06)
[2021-08-29] MEDS: ALPRAZolam (*CRX) 0.5 MG TABLET PO (08:06)
[2021-08-29] MEDS: CHOLECALCIFEROL 1,000 UNITS TABLET 2000 UNITS PO (08:06)
[2021-08-29] MEDS: VENLAFAXINE HCL 37.5 MG TABLET PO (08:06)
[2021-08-29] MEDS: SENNA/DOCUSATE SODIUM TABLET 2 TAB PO ×2 (08:06→16:16)
[2021-08-29] MEDS: buPROPion HCL XL (24 HR) 150 MG TABCR PO (08:06)
[2021-08-29] MEDS: FAMOTIDINE 20 MG TABLET PO ×2 (08:06→20:58)
[2021-08-29] MEDS: PANTOPRAZOLE 40 MG TABLET PO ×2 (08:06→16:17)
[2021-08-29] MEDS: ATORVASTATIN 20 MG TABLET PO (08:06)
[2021-08-29] MEDS: ASPIRIN 325 MG ENTERIC TABLET 650 MG PO (08:06)
--- NOTE | 2021-08-29 10:02 | PM.PNORT ---
Progress Note: A&P Assessment and Plan (1) S/P total hip arthroplasty: Qualifiers: Laterality: right Qualified Code(s): Z96.641 - Presence of right artificial hip joint Code(s): Z96.649 - Presence of unspecified artificial hip joint Status: Acute Assessment and Plan: POD #3 : R MEDARDO Continue PT/OT. WBAT. Walker. HIGH FALL RISK. Continue pain control. Ice hip. Protect skin. DVT prophylaxis with Aspirin. SCDs. Incentive Spirometry Use reviewed. Monitor Dressing. Change prior to discharge. Bowel Regimen. Dispo: Home with Home Health pending medical clearance. (2) Postoperative anemia due to acute blood loss: Code(s): D62 - Acute posthemorrhagic anemia Status: Acute Assessment and Plan: HgB stable at 8.2. (3) Hyponatremia: Code(s): E87.1 - Hypo-osmolality and hyponatremia Status: Acute Assessment and Plan: NA 131 today. Improved from yesterday. Medicine service following. HCTZ held. Appreciate recommendations. (4) Hypokalemia: Code(s): E87.6 - Hypokalemia Status: Acute Assessment and Plan: Potassium 3.2 today. Repleted by medicine service. Time Spent With Patient Time with patient: less than 15 minutes Subjective Subjective Date/Time Seen: 08/29/21 10:02 Post Op day: 3 Interval history: POD #3: Right MEDARDO Patient doing well today. Overall, feeling better. No new concerns aside from discharge planning. Review of Systems Review of Systems: All systems reviewed & are unremarkable except as noted in HPI and below Constitutional: Constitutional: Denies chills, Denies fever(s), Denies headache(s), Denies lethargy and Reports weakness ENT: Denies headache(s) Cardiovascular: Cardiovascular: Denies chest pain, Denies diaphoresis, Denies lightheadedness, Denies palpitations, Denies dyspnea and Denies dyspnea on exertion Respiratory: Respiratory: Denies cough, Denies dyspnea and Denies dyspnea on exertion Gastrointestinal: Gastrointestinal: Denies constipation, Denies diarrhea, Denies nausea and Denies vomiting Genitourinary: Genitourinary: Reports urinary frequency, Denies dysuria and Denies urinary hesitancy Musculoskeletal: Musculoskeletal: Reports joint swelling (Right Hip ) and Reports limited range of motion (Right Hip due to recent surgery ) Neurologic: Denies headache(s) and Reports weakness Endocrine: Endocrine: Denies palpitations Exam Const: General: comfortable and no acute distress Resp: Effort & Inspection: normal respiratory effort Cardio: Rate: regular rate Rhythm: regular rhythm GI: Inspection: non-distended Skin: General skin exam: normal color Other: Incision right hip c/d/i. Surrounding tissue without redness/warmth. Mild swelling consistent with recent surgery. No drainage. Neuro: Cognition (Neuro): normal cognition Speech: normal speech Other: Strength RLE decreased due to recent surgery. +ankle dorsiflexion/plantarflexion. NV intact. Moves toes. Sensaiton intact to light touch. Extrem: Right lower extremity: normal to inspection, normal capillary refill and hip/thigh Details: tenderness Location: of the hip (Thigh soft ) Location: laterally and anteriorly, swelling Location: at the hip, abnormal ROM (limited consistent with recent surgery ) and other (Incision c/d/i. ); no deformity and no unusual warmth Objective Data Vital Signs Vital Signs: Vital Signs - 24 hr 08/28/21 18:00 08/28/21 20:07 08/28/21 20:53 Temperature 36.9 C 36.3 C L Pulse Rate 110 H 114 H Respiratory Rate 18 18 Blood Pressure 126/58 L 135/70 Pulse Oximetry 97 98 98 08/29/21 03:59 08/29/21 08:25 Temperature 36.0 C L 36.5 C Pulse Rate 100 100 Respiratory Rate 18 18 Blood Pressure 120/57 L 122/56 L Pulse Oximetry 97 98 Intake/Output Intake/Output: Intake & Output 08/26/21 08/27/21 08/28/21 08/29/21 23:59 23:59 23:59 23:59 Intake Total 1825 3100 1690 540 Output Total 0 100 700 Balance 182
--- NOTE | 2021-08-29 11:29 | PM.IMCN ---
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 Hold her hydrochlorothiazide until she follows up with her primary care physician within 1 week Continue fluid restriction Pending urine and serum osmolalities, FENa and FEUrea. (2) Postoperative anemia due to acute blood loss: Code(s): D62 - Acute posthemorrhagic anemia Status: Acute Assessment and Plan: Status post blood transfusion postop day 2. Repeat hemoglobin and hematocrit in a.m.. (3) Hypertension: Code(s): I10 - Essential (primary) hypertension Status: Inactive Assessment and Plan: Blood pressures were reviewed and they are stable. (4) Depression with anxiety: Code(s): F41.8 - Other specified anxiety disorders Status: Acute Assessment and Plan: Continue alprazolam, bupropion, and venlafaxine. If sodium continues to drop, would consider holding these medications. (5) Gastroesophageal reflux disease: Code(s): K21.9 - Gastro-esophageal reflux disease without esophagitis Status: Inactive Assessment and Plan: No acute issues. Continue omeprazole. Additional Plan Thank you for allowing us to participate in this patient's care. Please do not hesitate to contact us with any questions. Supervising physician for this medical consultation is Dr. Emerson Parker. HPI Data of Consult Consult date: 08/29/21 Requesting Physician: Home Contreras MD Primary Care Provider: Hilary BalMD Consult Narrative Narrative: Melisa Blue is a 76 year old female who is alert and oriented. She reports that she feels better today shower however has pain when she transitions from the bed to the commode. Patient's sodium is still [address] labs for tomorrow morning. Repleted potassium with 40 mEq. Continue to monitor sodium levels plan for discharge home. Discussed plan of care with ortho, they she reported she was able to be discharged from their standpoint. Review of Systems Review of Systems: All systems reviewed & are unremarkable except as noted in HPI and below PMFSH Past Medical History Medical History (Updated 08/29/21 @ 10:45 by SANDOVAL Gaspar) Anxiety Arthritis Depression Gastroesophageal reflux disease Hyperlipidemia Hypertension Surgical History Surgical History (Updated 08/29/21 @ 00:28 by Kandice Whitehead PA-C) History of hysterectomy History of total right hip arthroplasty (08/26/21) Family History Family History Other Family history of mental disorder Social History Social History (Updated 08/29/21 @ 00:28 by Kandice Whitehead PA-C) Social History: Surrogate decision maker: Pio Blue, spouse. Code status: Full code. Smoking status: Former smoker Tobacco type: cigarettes Additional smoking assessment comments: Smoked briefly in her 20s. Alcohol intake: never Substance use: never Living arrangements: with family Spiritual care concerns: No Meds Home Medications and Allergies Home Medications Medication Instructions Recorded Confirmed Type alprazolam 0.5 mg tablet 0.5 mg PO BID 03/15/20 08/26/21 History bupropion HCl 150 mg 24 hr tablet, 150 mg PO QAM 03/15/20 08/26/21 History extended release cimetidine 800 mg tablet 800 mg PO BID 03/15/20 08/26/21 History omeprazole 40 mg capsule,delayed 40 mg PO DAILY 03/15/20 08/26/21 History release temazepam 15 mg capsule 30 mg PO HS 03/15/20 08/26/21 History venlafaxine 3
[2021-08-29] MEDS: ALPRAZolam (*CRX) 0.5 MG TABLET 1 MG PO (20:58)
[2021-08-30] MEDS: HYDROcodone/acetaminophen (*CRX) 7.5-325 MG TABLET 1 TAB PO (00:09)
[2021-08-30 04:23] VITALS: BP 119/63; PULSE 95; RESP 20; TEMP 36.2; O2SAT 99
[2021-08-30 07:37] LABS: Hematocrit 25.5 % (37.0-47.0); Hemoglobin 8.3 g/dL (12.0-15.0); Mean Corpuscular HGB Conc 32.5 g/dl (32-36); Mean Corpuscular Hemoglobin 28.4 pg (26-34); Mean Corpuscular Volume 87.3 fl (80-100); Mean Platelet Volume 9.6 fl (7.4-10.4); Platelet Count Result 373 k/mm3 (150-375); Red Blood Count 2.92 M/mm3 (4.2-5.4); Red Cell Distribution Width 13.6 % (11.5-14.5); White Blood Count 7.8 K/mm3 (4.5-10.0)
[2021-08-30 07:47] LABS: Anion Gap 3 mmol/L (8-16); Blood Urea Nitrogen 11 mg/dL (7-17); Calcium 8.2 mg/dL (8.4-10.2); Carbon Dioxide 30 mmol/L (22-30); Chloride 99 mmol/L (98-107); Estimated CRCL calculation 63 ml/min; Estimated Glomerular Filt Rate > 60; Glucose 106 mg/dL (65-110); Potassium 3.9 mmol/L (3.4-5.0); Sodium 132 mmol/L (137-145)
[2021-08-30] MEDS: polyethylene glycoL 3350 17 GM POWD.PACK PO (09:37)
[2021-08-30] MEDS: ASPIRIN 325 MG ENTERIC TABLET 650 MG PO (09:37)
[2021-08-30] MEDS: SENNA/DOCUSATE SODIUM TABLET 2 TAB PO (09:38)
[2021-08-30] MEDS: FAMOTIDINE 20 MG TABLET PO (09:38)
[2021-08-30] MEDS: CHOLECALCIFEROL 1,000 UNITS TABLET 2000 UNITS PO (09:38)
[2021-08-30] MEDS: PANTOPRAZOLE 40 MG TABLET PO (09:38)
[2021-08-30] MEDS: ALPRAZolam (*CRX) 0.5 MG TABLET PO (09:38)
[2021-08-30] MEDS: ATORVASTATIN 20 MG TABLET PO (09:38)
[2021-08-30] MEDS: VENLAFAXINE HCL 37.5 MG TABLET PO (09:38)
[2021-08-30] MEDS: CYANOCOBALAMIN 1,000 MCG TABLET 1000 MCG PO (09:38)
[2021-08-30 10:05] VITALS: BP 130/62; PULSE 88; RESP 18; TEMP 36.5; O2SAT 99
[2021-08-30] MEDS: buPROPion HCL XL (24 HR) 150 MG TABCR PO (11:30)
[2021-08-30 14:00] VITALS: BP 132/56; PULSE 97; RESP 18; TEMP 36.6; O2SAT 97
--- NOTE | 2021-08-30 14:12 | PM.PNORT ---
Progress Note: A&P Additional Plan POD 3 IMPROVING. Na IS STILL LOW. HGB IS STABLE. NO SOB OR CP. OK TO DC HOME. F/U IN 3 WEEKS. Subjective Subjective Date/Time Seen: 08/30/21 14:12 POD 3 DOING WELL PAIN CONTROLLED. NO CALF PAIN Exam Extrem: Other: VSS AFEBRILE DRESING DRY NV INTACT NEG HOMANS SIGN Objective Data Vital Signs Vital Signs: Vital Signs - 24 hr 08/29/21 14:42 08/29/21 18:10 08/29/21 20:00 Temperature 37.1 C 36.9 C Pulse Rate 99 88 108 H Respiratory Rate 18 18 18 Blood Pressure 125/61 128/66 Pulse Oximetry 97 98 98 08/29/21 20:57 08/29/21 21:08 08/30/21 04:23 Temperature 36.4 C 36.2 C L Pulse Rate 108 H 95 Respiratory Rate 18 20 Blood Pressure 133/61 119/63 Pulse Oximetry 98 98 99 08/30/21 10:05 Temperature 36.5 C Pulse Rate 88 Respiratory Rate 18 Blood Pressure 130/62 Pulse Oximetry 99 Intake/Output Intake/Output: Intake & Output 08/27/21 08/28/21 08/29/21 08/30/21 23:59 23:59 23:59 23:59 Intake Total 3100 1690 1020 780 Output Total 100 1600 300 Balance 3100 1590 -580 480 Meds/Results Medications: Active Medications Generic Name Dose Route Start Last Admin Trade Name Freq PRN Reason Stop Dose Admin Acetaminophen 650 mg 08/26/21 12:10 08/27/21 08:07 Acetaminophen 325 Mg Tablet PO 650 mg Q6H PRN Administration Mild Pain (1-3) or Fever Hydrocodone Bitart/Acetaminophen 1 tab 08/26/21 12:10 08/30/21 00:09 Hydrocodone/Acetaminophen (*Crx) 7.5-325 Mg Tablet PO 1 tab Q3H PRN Administration Pain Rated 4-6 Alprazolam 0.5 mg 08/27/21 09:00 08/30/21 09:38 Alprazolam (*Crx) 0.5 Mg Tablet PO 0.5 mg DAILY [facility] Administration Alprazolam 1 mg 08/26/21 21:00 08/29/21 20:58 Alprazolam (*Crx) 0.5 Mg Tablet PO 1 mg HS [facility] Administration Aspirin 650 mg 08/27/21 09:00 08/30/21 09:37 Aspirin 325 Mg Enteric Tablet PO 650 mg DAILY [facility] Administration Atorvastatin Calcium 20 mg 08/27/21 09:00 08/30/21 09:38 Atorvastatin 20 Mg Tablet PO 20 mg DAILY [facility] Administration Bupropion HCl 150 mg 08/27/21 09:00 08/30/21 11:30 Bupropion Hcl Xl (24 Hr) 150 Mg Tabcr PO 150 mg QAM [facility] Administration Cyanocobalamin 1,000 mcg 08/27/21 09:00 08/30/21 09:38 Cyanocobalamin 1,000 Mcg Tablet PO 1,000 mcg DAILY [facility] Administration Diazepam 5 mg 08/26/21 12:10 Diazepam (*Crx) 5 Mg Tablet PO Q6H PRN Anxiety/Muscle Spasm Famotidine 20 mg 08/26/21 21:00 08/30/21 09:38 Famotidine 20 Mg Tablet PO 20 mg Q12HR [facility] Administration Hydroxyzine HCl 50 mg 08/26/21 12:10 Hydroxyzine Hcl 25 Mg Tablet PO Q4H PRN Itching Morphine Sulfate 3 mg 08/26/21 12:10 Morphine Sulfate (*Crx) 4 Mg/Ml Inj IV PUSH Q3H PRN Pain Rated 7-10 Naloxone HCl 0.1 mg 08/26/21 12:10 Naloxone Hcl 0.4 Mg/Ml Vial IV PUSH Q2M PRN Opiate Reversal Ondansetron HCl 4 mg 08/26/21 12:10 08/27/21 08:07 Ondansetron Inj 4 Mg/2 Ml Vial IV PUSH 4 mg Q4H PRN Administration Nausea And Vomiting Pantoprazole Sodium 40 mg 08/27/21 09:00 08/30/21 09:38 Pantoprazole 40 Mg Tablet PO 40 mg BID [facility] Administration Polyethylene Glycol 17 gm 08/27/21 09:00 08/30/21 09:37 Polyethylene Glycol 3350 17 Gm Powd.Pack PO 17 gm QAM [facility] Administration Senna/Docusate Sodium 2 tab 08/26/21 17:00 08/30/21 09:38 Senna/Docusate Sodium Tablet PO 2 tab BID [facility] Administration Venlafaxine HCl 37.5 mg 08/27/21 09:00 08/30/21 09:38 Venlafaxine Hcl 37.5 Mg Tablet PO 37.5 mg QAM [facility] Administration Vitamin D 2,000 units 08/27/21 09:00 08/30/21 09:38 Cholecalciferol 1,000 Units Tablet PO 2,000 units DAILY [facility] Administration Radiology Results: ITS Impressions Hip X-Ray 08/26/21 11:18 IMPRESSION: 1. Total right hip arthroplasty in near-anatomic alignment. Labs Labs: Laboratory Results - last 24 hr 08/30/21 08/30/21 0
--- NOTE | 2021-08-30 14:27 | PCPTNOTE ---
Verbal check with patient before discharge if there was any question or concerns she might have when returning home. Patient stated she felt comfortable with all the information she was given and has written instructions she can follow.
[2021-08-31 18:38] LABS: Osmolality, Urine 164 mOsm/kg (50-1200)
--- NOTE | 2021-09-23 13:31 | PM.DS ---
DS: Admitting Diagnosis Discharge Date 08/30/21 Admitting Diagnosis R HIP DJD DS: Summary Hospital Course Reason for hospitalization: R MEDARDO Hospital Course: PATIENT WAS ADMITTED S/P TOTAL RIGHT MEDARDO ARTHROPLASTY FOR POSTOPERATIVE MEDICAL MANAGEMENT, PAIN CONTROL AND MOBILIZATION WITH PHYSICAL AND OCCUPATIONAL THERAPY. THE PATIENT PROGRESSED WELL WITH PT/OT. LABS AND VITALS REMAINED STABLE AND PAIN WELL CONTROLLED. THE PATIENT HAS BEEN CLEARED TO BE DISCHARGED TO HOME. FOLLOW UP APPOINTMENT SCHEDULED. DISCHARGE INSTRUCTIONS DISCUSSED AT LENGTH WITH THE PATIENT. MEDICATIONS REVIEWED. Status at Discharge Cognitive/behavioral status at discharge: STABLE Time Spent with Patient Time attestation: Total time spent providing and/or coordinating discharge services: Discharge Plan Discharge Attending physician on discharge: Home Contreras Consulting providers: Jack Parker ; Conchita Tran ; Kandice Whitehead ; Nuzhat Means ; Kavon Mendoza V. Discharging Clinician: Nuzhat Means Anticipated Discharge Date/Time: 08/30/21 09:00 Patient Disposition: Home Health Service Activity: may shower, no driving and follow weight bearing status Diet: as tolerated Wound Care Instructions: follow printed instructions Discharge Instructions: Per Care Coordination, [facility] has been arranged for Physical Therapy, Occupational Therapy, and nursing. They can be reached at [phone]. [facility] [phone]. Post Op Total Hip Replacement Instructions Dr. Home Contreras [phone] ? Your dressing will be changed prior to your discharge. You will be sent home with one additional dressing to be changed on post op day 7 by the home health RN. You may remove the dressing on post op day 14. Your incision was closed with dermabond, allow the dermabond to fall off naturally once your dressing is removed. Do not pull at the dermabond or disrupt incision healing. ? You may shower with your dressing but do not submerge in a bath tub. ? Do not drive or operate machinery until you are released by Dr. Contreras. ? Do not walk without a walker for any reason until you are released by Dr. Contreras. ? Continue to apply ice to the hip intermittently for additional pain relief. Protect your skin with a towel or pillow case. ? Continue to follow strict total hip replacement precautions. ? Your first post op appointment was sent to you via mail preoperatively. If you have any questions or are unable to make your appointment, please contact our office for scheduling questions. ? Your medications have been sent to your pharmacy. You have been sent home with pain medication. We have also sent you with a stool softener as narcotics can cause constipation. Please keep this in mind during your postoperative recovery. If you are not experiencing regular bowel movements, please contact our office for further instruction. ? Please contact our office with any questions/concerns regarding your hip at [phone]. Hold HCTZ until you follow up with your PCP in 1 week, discuss hyponatremia and repeating labs monitor fluid intake, weight daily follow up with your PCP within 1 week Patient Instructions: Antibiotic Form, Pain Management (DC), Precautions after Total Joint Replacement Surgery (DC), Joint Replacement Surgery (DC), Total Hip Replacement (DC) Stand Alone Forms: General Discharge Information Follow-up/Referrals: Home Contreras MD [Physician] - Keep Reg. Scheduled Appt. Valeriano,Hilary Jorge MD [Primary Care Provider] - 2 Weeks Discharge Medications: New sennosides-docusate sodium [Senokot-S] 8.6-50 mg Tablet 1 tab PO BID 30 Days Qty: 60 0RF aspirin 325 mg Tablet,Delayed Release (Dr/Ec) 650 mg PO DAILY 27 Days Qty: 54 0RF hydrocodone-acetaminophen 7.5-325 mg Tablet 1 tablet PO Q4-6H PRN (Reason: pain) Qty: 56 0RF Continued cimetidine 800 mg tablet 800 mg PO
== END 2021-08-30 16:05 | disposition home health service (06) ==
LOC: ANHSURGERY 15:33 → ANH2MED 15:33
PROVIDERS: Internal Medicine; Nurse Practitioner Family; Physician Assistant; Admitting Provider Orthopaedic Surgery; PCP Internal Medicine; Visit Provider Orthopaedic Surgery
PROC: (CPT 27130; principal; 2021-08-26 07:30)
DX: M16.11 Unilateral primary osteoarthritis, right hip (principal); E87.1 Hypo-osmolality and hyponatremia; E87.6 Hypokalemia; D62 Acute posthemorrhagic anemia; I10 Essential (primary) hypertension; K21.9 Gastro-esophageal reflux disease without esophagitis; F32.A Depression, unspecified; F41.9 Anxiety disorder, unspecified; Z96.653 Presence of artificial knee joint, bilateral
CPT/HCPCS: 27130; 36415; 36430; 73501; 80048; 80307; 81001; 82040; 82570; 83036; 83735; 83930; 83935; 84300; 84443; 84540; 85014; 85018; 85025; 85027; 85610; 85730; 86850; 86900; 86901; 86920; 87081; 93005; 97110; 97116; 97161; 97165; 97530; 97535; A9270; C1713; C1776; G0378; J0171; J0690; J1100; J1170; J1885; J2250; J2270; J2370; J2405; J2704; J2795; J3010; J7050; J7120; P9016